=== PATIENT | male | born 1990 | race African-American/Black ===

== ENCOUNTER 2017-02-23 12:46 | Emergency (ER) | payer SELFPAY ==
[~2017-02-23] VITALS: Ht 162.6 cm; Wt 154.0 kg
[~2017-02-23 12:46] MED LIST: MAGIC MOUTHWASH1 ML MM; MOTRIN800 MG PO; NOHOMEMEDS; VENTOLIN HFA18 GM IH
[2017-02-23 15:29] VITALS: BP 138/67
== END 2017-02-23 15:29 | disposition home or self-care (01) ==
LOC: EXP 12:46 → EME 12:46 → EXP 15:29
DX: S30.22XA Contusion of scrotum and testes, initial encounter (principal); Y04.0XXA Assault by unarmed brawl or fight, initial encounter
CPT/HCPCS: 76870; 99281; 99283

== ENCOUNTER 2017-02-25 09:33 | Emergency (ER) | payer SELFPAY ==
[~2017-02-25] VITALS: Ht 162.6 cm; Wt 158.1 kg
[2017-02-25 10:17] LABS: ADD MIUA? YES; BILIRUBIN NEGATIVE; BLOOD SMALL; COLOR YELLOW ((YELLOW)); GLUCOSE (STRIP) NEGATIVE; KETONES NEGATIVE; LEUKOCYTES NEGATIVE; NITRITE NEGATIVE; PROTEIN (STRIP) 100; SPECIFIC GRAVITY 1.018 (1.000-1.030); UROBILINOGEN 0.2 MG/DL (0.2-1.0)
[2017-02-25 10:29] LABS: BACTERIA NONE SEEN /HPF; EPITHELIAL CELLS RARE /HPF; MUCUS TRACE /LPF; WHITE BLOOD CELLS 0-5 /HPF (0-5)
[2017-02-25 12:19] LABS: BACTERIA NONE SEEN /HPF; EPITHELIAL CELLS RARE /HPF; MUCUS RARE /LPF
[2017-02-25 13:15] VITALS: BP 134/82
[2017-02-27 12:55] LABS: CHLAMYDIA TRACHOMATIS NEGATIVE; NEISSERIA GONORRHOEAE NEGATIVE
== END 2017-02-25 13:15 | disposition home or self-care (01) ==
LOC: EME 09:33
PROVIDERS: Nurse Practitioner Family
DX: R30.0 Dysuria (principal); R31.9 Hematuria, unspecified
CPT/HCPCS: 81003; 81015; 87086; 87491; 87591; 99281; 99284

== ENCOUNTER 2017-11-30 17:17 | Emergency (ER) | payer OTHER ==
[~2017-11-30] VITALS: Ht 165.1 cm; Wt 160.1 kg
[2017-11-30 18:04] LABS: SOURCE URINE
[2017-11-30 18:11] LABS: APPEARANCE CLEAR ((CLEAR)); BILIRUBIN NEGATIVE; BLOOD SMALL; COLOR YELLOW ((YELLOW)); GLUCOSE (STRIP) NEGATIVE; KETONES NEGATIVE; LEUKOCYTES NEGATIVE; NITRITE NEGATIVE; PROTEIN (STRIP) 100; SPECIFIC GRAVITY 1.023 (1.000-1.030); UROBILINOGEN 0.2 MG/DL (0.2-1.0)
[2017-11-30 18:17] LABS: BACTERIA NONE SEEN /HPF; EPITHELIAL CELLS RARE /HPF; MUCUS TRACE /LPF; RED BLOOD CELLS 0-5 /HPF (0-5)
[2017-11-30 19:28] VITALS: BP 141/90
[2017-12-02 12:56] LABS: CHLAMYDIA TRACHOMATIS NEGATIVE; NEISSERIA GONORRHOEAE NEGATIVE
== END 2017-11-30 19:28 | disposition home or self-care (01) ==
LOC: EME 17:17
PROVIDERS: Physician Assistant
DX: R30.0 Dysuria (principal)
CPT/HCPCS: 81003; 87491; 87591; 99281; 99284